=== PATIENT | male | born 1975 | race American Indian/Alaskan Native ===

== ENCOUNTER 2019-11-22 08:01 | Emergency (ER) | payer SELFPAY ==
[2019-11-22 08:08] VITALS: BP 133/78
[2019-11-22 09:43] LABS: Bilirubin,Urine NEG (Negative); Blood,Urine LG (Negative); Color,Urine Yellow (Yellow); Mucus,Urine FEW /HPF; Protein,Urine <15 mg/dL mg/dL (Negative); Urobilinogen,Urine < 2.0 mg/dL (<2.0)
[2019-11-22 10:38] LABS: Basophils # (Auto) 0.1 K/mm3 (0.0-0.1); Basophils % (Auto) 0.8 % (0.0-1.8); Eosinophils # (Auto) 0.2 K/mm3 (0.0-0.4); Hematocrit 44.9 % (35.5-45.6); Hemoglobin 15.5 gm/dl (11.8-15.2); Lymphocytes % (Auto) 30.5 % (13.4-35.0); Mean Corpuscular HGB Conc 35 % (32-34); Mean Corpuscular Volume 89 fl (84-94); Monocytes # (Auto) 0.8 K/mm3 (0.0-0.8); Monocytes % (Auto) 8.2 % (0.0-7.3); Platelet Count 239 K/mm3 (140-440); Red Blood Count 5.06 M/mm3 (3.65-5.03); Red Cell Distribution Width 14.8 % (13.2-15.2)
--- NOTE | 2019-11-22 10:42 | Emergency Department Report ---
ED Male HPI - General Chief complaint: Urogenital-Male Stated complaint: blood in urine Time Seen by Provider: 11/22/19 09:39 Source: patient Mode of arrival: Ambulatory Limitations: No Limitations - History of Present Illness Initial comments: Patient is a 44-year-old male who presents emergency room with points of hematuria that began yesterday. He denies any dysuria, urinary frequency, urinary urgency, nausea, vomiting, diarrhea, fever, back pain, abdominal pain, pain or swelling in the testicles, penile discharge. he denies any injury. He d enies ever having in the past. He denies any past medical history. No allergies to medications. - Related Data Allergies Allergy/AdvReac Type Severity Reaction Status Date / Time No Known Allergies Allergy Unverified 11/22/19 08:04 ED Review of Systems ROS: Stated complaint: blood in urine Other details as noted in HPI Comment: All other systems reviewed and negative ED Past Medical Hx - Past Medical History Previous Medical History?: No - Surgical History Past Surgical History?: No - Social History Smoking Status: Current Every Day Smoker ED Physical Exam - General Limitations: No Limitations General appearance: alert, in no apparent distress - Head Head exam: Present: atraumatic, normocephalic - Eye Eye exam: Present: normal appearance - ENT ENT exam: Present: mucous membranes moist - Respiratory Respiratory exam: Present: normal lung sounds bilaterally. Absent: respiratory distress, wheezes, rales, rhonchi, stridor, chest wall tenderness, accessory muscle use, decreased breath sounds, prolonged expiratory - Cardiovascular Cardiovascular Exam: Present: regular rate, normal rhythm, normal heart sounds. Absent: systolic murmur, diastolic murmur, rubs, gallop - GI/Abdominal GI/Abdominal exam: Present: soft, normal bowel sounds. Absent: distended, tenderness, guarding, rebound, rigid - Back Exam Back exam: Absent: CVA tenderness (R), CVA tenderness (L) - Neurological Exam Neurological exam: Present: alert, oriented X3 - Psychiatric Psychiatric exam: Present: normal affect, normal mood - Skin Skin exam: Present: warm, dry, intact ED Course Vital Signs 11/22/19 08:06 Temperature 98.0 F Pulse Rate 85 Respiratory 20 Rate Blood Pressure 133/78 O2 Sat by Pulse 95 Oximetry ED Medical Decision Making - Lab Data Result diagrams: 11/22/19 10:10 11/22/19 10:10 Lab Results 11/22/19 11/22/19 11/22/19 Range/Units 09:13 10:10 10:10 WBC 9.8 (4.5-11.0) K/mm3 RBC 5.06 H (3.65-5.03) M/mm3 Hgb 15.5 H (11.8-15.2) gm/dl Hct 44.9 (35.5-45.6) % MCV 89 (84-94) fl MCH 31 (28-32) pg MCHC 35 H (32-34) % RDW 14.8 (13.2-15.2) % Plt Count 239 (140-440) K/mm3 Lymph % (Auto) 30.5 (13.4-35.0) % [place] % (Auto) 8.2 H (0.0-7.3) % Eos % (Auto) 2.0 (0.0-4.3) % Baso % (Auto) 0.8 (0.0-1.8) % Lymph # (Auto) 3.0 (1.2-5.4) K/mm3 [place] # (Auto) 0.8 (0.0-0.8) K/mm3 Eos # (Auto) 0.2 (0.0-0.4) K/mm3 Baso # (Auto) 0.1 (0.0-0.1) K/mm3 Seg Neutrophils % 58.5 (40.0-70.0) % Seg Neutrophils # 5.8 (1.8-7.7) K/mm3 PT 14.4 (12.2-14.9) Sec. INR 1.10 (0.87-1.13) APTT 28.1 (24.2-36.6) Sec. Sodium (137-145) mmol/L Potassium (3.6-5.0) mmol/L Chloride (98-107) mmol/L Carbon Dioxide (22-30) mmol/L Anion Gap mmol/L BUN (9-20) mg/dL Creatinine (0.8-1.3) mg/dL Estimated GFR ml/min BUN/Creatinine Ratio % Glucose (75-100) mg/dL Calcium (8.4-10.2) mg/dL Total Bilirubin (0.1-1.2) mg/dL AST (5-40) units/L ALT (7-56) units/L Alkaline Phosphatase (35-129) units/L Total Creatine Kinase (55-170) units/L Total Protein (6.3-8.2) g/dL Albumin (3.9-5) g/dL Albumin/Globulin Ratio % Urine Color Yellow (Yellow) Urine Turbidity Clear (Clear) Urine pH 5.0 (5.0-7.0) Ur Specific [place] 1.013 (1.003-1.030) Urine Protein <15 mg/dl (Negative) mg/dL Urine Glucose (UA) Neg (Negative) mg/dL Urine Ketones Neg (Negative) mg/dL Urine Blood Lg (Negative) Urine Nitrite Neg (Negative) Urine Bilirubin Neg (Negative) Urine Urobilinogen < 2.0 (<2.0) mg/dL Ur Leukocyte Esterase Neg (Negative) Urine WBC (Auto) 1.0 (0.0-6.0) /HPF Urine RBC (Auto) 20.0 (0.0-6.0) /HPF U Epithel Cells (Auto) < 1.0 (0-13.0) /HPF Urine Mucus Few /HPF 10/15/20 Range/Units 10:10 WBC (4.5-11.0) K/mm3 RBC (3.65-5.03) M/mm3 Hgb (11.8-15.2) gm/dl Hct (35.5-45.6) % MCV (84-94) fl MCH (28-32) pg MCHC (32-34) % RDW (13.2-15.2) % Plt Count (140-440) K/mm3 Lymph % (Auto) (13.4-35.0) % [place] % (Auto) (0.0-7.3) % Eos % (Auto) (0.0-4.3) % Baso % (Auto) (0.0-1.8) % Lymph # (Auto) (1.2-5.4) K/mm3 [place] # (Auto) (0.0-0.8) K/mm3 Eos # (Auto) (0.0-0.4) K/mm3 Baso # (Auto) (0.0-0.1) K/mm3 Seg Neutrophils % (40.0-70.0) % Seg Neutrophils # (1.8-7.7) K/mm3 PT (12.2-14.9) Sec. INR (0.87-1.13) APTT (24.2-36.6) Sec. Sodium 140 (137-145) mmol/L Potassium 3.7 (3.6-5.0) mmol/L Chloride 102.7 (98-107) mmol/L Carbon Dioxide 28 (22-30) mmol/L Anion Gap 13 mmol/L BUN 9 (9-20) mg/dL Creatinine 0.9 (0.8-1.3) mg/dL Estimated GFR > 60 ml/min BUN/Creatinine Ratio 10 % Glucose 129 H (75-100) mg/dL Calcium 9.6 (8.4-10.2) mg/dL Total Bilirubin 0.50 (0.1-1.2) mg/dL AST 19 (5-40) units/L ALT 32 (7-56) units/L Alkaline Phosphatase 59 (35-129) units/L Total Creatine Kinase 257 H (55-170) units/L Total Protein 7.6 (6.3-8.2) g/dL Albumin 4.0 (3.9-5) g/dL Albumin/Globulin Ratio 1.1 % Urine Color (Yellow) Urine Turbidity (Clear) Urine pH (5.0-7.0) Ur Specific [place] (1.003-1.030) Urine Protein (Negative) mg/dL Urine Glucose (UA) (Negative) mg/dL Urine Ketones (Negative) mg/dL Urine Blood (Negative) Urine Nitrite (Negative) Urine Bilirubin (Negative) Urine Urobilinogen (<2.0) mg/dL Ur Leukocyte Esterase (Negative) Urine WBC (Auto) (0.0-6.0) /HPF Urine RBC (Auto) (0.0-6.0) /HPF U Epithel Cells (Auto) (0-13.0) /HPF Urine Mucus /HPF - Radiology Data Radiology results: report reviewed CT ABDOMEN PELVIS WITHOUT CONTRAST INDICATION / CLINICAL INFORMATION: hematuria. TECHNIQUE: Axial CT images were obtained through the abdomen and pelvis without IV contrast. All CT scans at this location are performed using CT dose reduction for ALARA by means of automated exposure control. COMPARISON: None available. FINDINGS: LOWER CHEST: No significant abnormality. LIVER: No significant abnormality. GALLBLADDER: No significant abnormality. BILE DUCTS: No significant abnormality. PANCREAS: No significant abnormality. SPLEEN: No significant abnormality. ADRENALS: No significant abnormality. RIGHT KIDNEY and URETER: No significant abnormality. LEFT KIDNEY and URETER: No significant abnormality. STOMACH and SMALL BOWEL: No significant abnormality. COLON: No significant abnormality. APPENDIX: No significant abnormality. PERITONEUM: No free fluid. No free air. No fluid collection. LYMPH NODES: No significant adenopathy. AORTA and ARTERIES: No significant abnormality. IVC and VEINS: No significant abnormality. URINARY BLADDER: No significant abnormality. REPRODUCTIVE ORGANS: No significant abnormality ADDITIONAL FINDINGS: None. SKELETAL SYSTEM: No significant abnormality. IMPRESSION: 1. No significant abnormality. Signer Name: Kb Asencio MD Signed: 11/22/2019 11:02 AM Workstation Name: [id number] Transcribed By: MADDY Dictated By: Kb Asencio MD Electronically Authenticated By: Kb Asencio MD Signed Date/Time: 11/22/19 1102 DD/ 1059 TD/TT: - Medical Decision Making Patient is a 44-year-old male who presents emergency room with points of hematuria that began yesterday. He denies any dysuria, urinary frequency, urinary urgency, nausea, vomiting, diarrhea, fever, back pain, abdominal pain, pain or swelling in the testicles, penile discharge. he denies any injury. He denies ever having in the past. He denies any past medical history. No allergies to medications. Vitals are normal. On exam no abdominal tenderness palpation, no guarding, no rebound, no rigidity, normal bowel sounds, no CVA tenderness bilaterally. UA does show 20 red blood cells, otherwise normal. Labs are normal. CT abdomen pelvis without contrast 1. No significant abnormality. Discussed all results with patient and answered questions. Patient be referred to urology for further evaluation. Patient will also be referred to primary care physician. Advised patient to please increase your water intake. Follow-up with urologist. Follow-up with primary care doctor. Return to emergency room for any new or worsening symptoms. - Differential Diagnosis Nephrolithiasis, RADHA, nephrotic/nephritic, rhabdo, mass, cancer, UTI Critical care attestation.: If time is entered above; I have spent that time in minutes in the direct care of this critically ill patient, excluding procedure time. ED Disposition Clinical Impression: Hematuria Qualifiers: Hematuria type: unspecified type Qualified Code(s): R31.9 - Hematuria, unspecified Disposition: DC-01 TO HOME OR SELFCARE Is pt being admited?: No Does the pt Need Aspirin: No Condition: Stable Instructions: Acute Hematuria (ED) Additional Instructions: please increase your water intake. Follow-up with urologist. Follow-up with primary care doctor. Return to emergency room for any new or worsening symptoms. Referrals: PRIMARY MD CLINT [Primary Care Provider] - 2-3 Days ANTONIO BLAIR MD [Staff Physician] - 2-3 Days [facility] [Provider Group] - 2-3 Days LILIYA BLACKBURN MD [Staff Physician] - 2-3 Days Time of Disposition: 11:44 Print Language: TURKMEN
[2019-11-22 10:46] LABS: INR 1.1 (0.87-1.13)
[2019-11-22 10:47] LABS: Partial Thromboplastin Time 28.1 Sec. (24.2-36.6)
[2019-11-22 11:05] LABS: Alanine Aminotransferase 32 units/L (7-56); BUN/Creatinine Ratio 10; Blood Urea Nitrogen 9 mg/dL (9-20); Calcium 9.6 mg/dL (8.4-10.2); Hemolysis Index 13
--- NOTE | 2019-11-22 11:06 | Cat Scan Report ---
CT ABDOMEN PELVIS WITHOUT CONTRAST INDICATION / CLINICAL INFORMATION: hematuria. TECHNIQUE: Axial CT images were obtained through the abdomen and pelvis without IV contrast. All CT scans at [facility] location are performed using CT dose reduction for ALARA by means of automated exposure control. COMPARISON: None available. FINDINGS: LOWER CHEST: No significant abnormality. LIVER: No significant abnormality. GALLBLADDER: No significant abnormality. BILE DUCTS: No significant abnormality. PANCREAS: No significant abnormality. SPLEEN: No significant abnormality. ADRENALS: No significant abnormality. RIGHT KIDNEY and URETER: No significant abnormality. LEFT KIDNEY and URETER: No significant abnormality. STOMACH and SMALL BOWEL: No significant abnormality. COLON: No significant abnormality. APPENDIX: No significant abnormality. PERITONEUM: No free fluid. No free air. No fluid collection. LYMPH NODES: No significant adenopathy. AORTA and ARTERIES: No significant abnormality. IVC and VEINS: No significant abnormality. URINARY BLADDER: No significant abnormality. REPRODUCTIVE ORGANS: No significant abnormality ADDITIONAL FINDINGS: None. SKELETAL SYSTEM: No significant abnormality. IMPRESSION: 1. No significant abnormality. Signer Name: Kb Asencio MD Signed: 11/22/2019 11:02 AM Workstation Name: [id number]
== END 2019-11-22 12:09 | disposition home or self-care (01) ==
LOC: ED 08:01
DX: R31.9 Hematuria, unspecified (principal)
CPT/HCPCS: 36415; 74176; 80053; 81001; 82550; 85025; 85610; 85730

== ENCOUNTER 2021-02-27 08:51 | Emergency (ER) | payer SELFPAY ==
[2021-02-27 09:14] VITALS: BP 126/82
--- NOTE | 2021-02-27 09:52 | Emergency Department Report ---
ED Extremity Problem HPI - General Chief complaint: Extremity Problem,Nontraumatic Stated complaint: LEG SWOLLEN - SEVERE PAIN Time Seen by Provider: 02/27/21 09:25 Source: patient Mode of arrival: Ambulatory Limitations: No Limitations - History of Present Illness Initial comments: 45-year-old -[place] male presents to the emergency room complaining of right calf pain and tenderness for 3 days. Patient states he has never had this before. Patient denies any trauma or injury. Patient states he is got recently diagnosed with prostate cancer that is nonmalignant. Patient states he is vaccinated but not booster. He denies any chest pain shortness of breathing no nausea no vomiting no fever or chills. MD Complaint: extremity pain, extremity swelling Onset/Timin -: days(s) Location: right, lower extremity History of Same: No -: Yes myalgia Severity scale (0 -10): 10 Quality: stabbing, aching, sharp Consistency: constant Worsens with: weight bearing, walking, palpation Associated Symptoms: denies other symptoms - Related Data Previous Rx's Medication Instructions Recorded Last Taken Type Rivaroxaban [Xarelto] 15 mg PO BID 21 Days #42 tablet 02/27/21 Unknown Rx Rivaroxaban [Xarelto] 20 mg PO QDAY #30 tab 02/27/21 Unknown Rx Allergies Allergy/AdvReac Type Severity Reaction Status Date / Time No Known Allergies Allergy Unverified 11/22/19 08:04 ED Review of Systems ROS: Stated complaint: LEG SWOLLEN - SEVERE PAIN Other details as noted in HPI Comment: All other systems reviewed and negative ED Past Medical Hx - Social History Smoking Status: Current Every Day Smoker - Medications Home Medications: Home Medications Medication Instructions Recorded Confirmed Last Taken Type Rivaroxaban [Xarelto] 15 mg PO BID 21 Days #42 tablet 02/27/21 Unknown Rx Rivaroxaban [Xarelto] 20 mg PO QDAY #30 tab 02/27/21 Unknown Rx ED Physical Exam - General Limitations: No Limitations General appearance: alert, in no apparent distress - Head Head exam: Present: atraumatic, normocephalic - Eye Eye exam: Present: normal appearance - ENT ENT exam: Present: normal exam, normal external ear exam - Neck Neck exam: Present: normal inspection, full ROM - Respiratory Respiratory exam: Absent: respiratory distress, accessory muscle use - Expanded Lower Extremity Exam Right Hip exam: Present: full ROM Upper Leg exam: Present: normal inspection Knee exam: Present: tenderness (Posterior knee) Lower Leg exam: Present: full ROM, tenderness, swelling Ankle exam: Present: normal inspection, full ROM Foot/Toe exam: Present: normal inspection, full ROM. Absent: tenderness, swelling Neuro vascular tendon exam: Present: no vascular compromise - Back Exam Back exam: Present: normal inspection, full ROM - Neurological Exam Neurological exam: Present: alert, oriented X3 - Psychiatric Psychiatric exam: Present: normal affect, normal mood - Skin Skin exam: Present: warm, dry, intact, normal color. Absent: rash ED Course Vital Signs 02/27/21 09:13 Temperature 98.8 F Pulse Rate 90 Respiratory 16 Rate Blood Pressure 126/82 [Right] O2 Sat by Pulse 99 Oximetry ED Medical Decision Making - Lab Data Result diagrams: 02/27/21 12:21 02/27/21 12:21 - Radiology Data Radiology results: report reviewed [facility] [address] [place] [address] Vascular Lab Report Signed Patient: IRIS SEQUEIRA MR#: [id number] : 1975 Acct:[id number] Age/Sex: 45 / M ADM Date: 02/27/21 Loc: ED Attending Dr: Ordering Physician: ROSHAN GARDNER Date of Service: 02/27/21 Procedure(s): VL venous duplex LE RT Accession Number(s): [id number] cc: ROSHAN GARDNER DUPLEX DOPPLER LOWER EXTREMITY VEINS, RIGHT INDICATION: Right calf pain and tenderness. TECHNIQUE: Duplex doppler imaging was performed through the veins of the right lower extremity using venous compression and other maneuvers. COMPARISON: No relevant prior imaging study available. FINDINGS: Right Common femoral vein: Negative. Right Superficial femoral vein: Positive. Right Popliteal vein: Positive. Right Calf veins: Positive. Additional findings: None. IMPRESSION: Positive for acute appearing occlusive DVT in the right lower extremity. Signer Name: Milton Mauro Jr, MD Signed: 02/27/2021 11:06 AM Workstation Name: [id number] Transcribed By: TTR Dictated By: MILTON MAURO JR, MD Electronically Authenticated By: MILTON MAURO JR, MD Signed Date/Time: 02/27/211105 DD/ 04 TD/TT: Print Cancel - Medical Decision Making 45-year-old -[place] male presents to the emergency room complaining of right calf pain and tenderness for 3 days. Patient states he has never had this before. Patient denies any trauma or injury. Patient states he is got recently diagnosed with prostate cancer that is nonmalignant. Patient states he is vaccinated but not booster. He denies any chest pain shortness of breathing no nausea no vomiting no fever or chills. Venous Doppler ordered for right lower extremity Critical care attestation.: If time is entered above; I have spent that time in minutes in the direct care of this critically ill patient, excluding procedure time. ED Disposition Clinical Impression: Deep vein thrombosis (DVT) of right lower extremity Disposition: HOME / SELF CARE / HOMELESS Is pt being admited?: No Does the pt Need Aspirin: No Condition: Stable Instructions: Bleeding Precautions When on Anticoagulant Therapy, Adult, Deep Vein Thrombosis, Venous Thromboembolism Prevention Additional Instructions: It is very important you take Xarelto as prescribed. The first 21 days you want to take the 15 mg twice a day. After you have taken that you will start on the 20 mg daily. It is important that you follow-up with the vascular provider that I'm referring you to as you would need to continue this medicine for 6 months or longer. You need to return back to the emergency room if you experience any shortness of breath chest pain or worsening leg swelling. Prescriptions: Rivaroxaban [Xarelto] 15 mg PO BID 21 Days #42 tablet Rivaroxaban [Xarelto] 20 mg PO QDAY #30 tab Referrals: PRIMARY CARE, [Primary Care Provider] - 3-5 Days [facility] [Provider Group] - 3-5 Days Forms: Work/School Release Form(ED) Time of Disposition: 13:32
--- NOTE | 2021-02-27 11:10 | Vascular Lab Report ---
DUPLEX DOPPLER LOWER EXTREMITY VEINS, RIGHT INDICATION: Right calf pain and tenderness. TECHNIQUE: Duplex doppler imaging was performed through the veins of the right lower extremity using venous compression and other maneuvers. COMPARISON: No relevant prior imaging study available. FINDINGS: Right Common femoral vein: Negative. Right Superficial femoral vein: Positive. Right Popliteal vein: Positive. Right Calf veins: Positive. Additional findings: None. IMPRESSION: Positive for acute appearing occlusive DVT in the right lower extremity. Signer Name: Milton Mauro Jr, MD Signed: 02/27/2021 11:06 AM Workstation Name: [id number]
[2021-02-27 12:49] LABS: Basophils % (Auto) 0.4 % (0.0-1.8); Eosinophils # (Auto) 0.2 K/mm3 (0.0-0.4); Eosinophils % (Auto) 2.3 % (0.0-4.3); Hematocrit 46.5 % (35.5-45.6); Hemoglobin 15.5 gm/dl (11.8-15.2); Lymphocytes # (Auto) 2.7 K/mm3 (1.2-5.4); Lymphocytes % (Auto) 27.4 % (13.4-35.0); Mean Corpuscular HGB Conc 33 % (32-34); Mean Corpuscular Volume 89 fl (84-94); Monocytes # (Auto) 0.8 K/mm3 (0.0-0.8); Monocytes % (Auto) 8.3 % (0.0-7.3); Platelet Count 233 K/mm3 (140-440); Red Blood Count 5.22 M/mm3 (3.65-5.03); Red Cell Distribution Width 14.2 % (13.2-15.2)
[2021-02-27 12:56] LABS: INR 0.97 (0.87-1.13)
[2021-02-27 12:57] LABS: Partial Thromboplastin Time 31.7 Sec. (24.2-36.6)
[2021-02-27 13:03] LABS: Alanine Aminotransferase 35 units/L (7-56); Albumin 3.9 g/dL (3.9-5); BUN/Creatinine Ratio 11; Blood Urea Nitrogen 11 mg/dL (9-20); Calcium 9.7 mg/dL (8.4-10.2); Hemolysis Index 7
== END 2021-02-27 13:44 | disposition home or self-care (01) ==
LOC: ED 08:51
DX: I82.401 Acute embolism and thrombosis of unspecified deep veins of right lower extremity (principal); F17.200 Nicotine dependence, unspecified, uncomplicated
CPT/HCPCS: 36415; 80053; 85025; 85610; 85730; 99284